=== PATIENT | male | born 1965 | race Caucasian/White ===

== ENCOUNTER → 2023-03-30 | Outpatient (CLI) | payer BC ==
[2023-03-30 15:05] LABS: BASO % 0.4 % (0.0-1.0); EOS # 0.1 10*3/uL (0.0-0.4); EOS % 2.7 % (1.0-4.0); HEMATOCRIT 46.1 % (42.0-52.0); LYMPH # 0.9 10*3/uL (1.3-4.4); LYMPH % 20.4 % (27.0-41.0); MEAN CELL VOLUME 90.6 fl (80.0-94.0); MEAN CORPUSCULAR HGB 31.8 pg (27.0-31.0); MEAN CORPUSCULAR HGB CONC 35.1 g/dl (33.0-37.0); MONO # 0.7 10*3/uL (0.1-1.0); MONO % 15.2 % (3.0-9.0); NEUT # 2.7 10*3/uL (2.3-7.9); NEUT % 61.1 % (47.0-73.0); PLATELET COUNT AUTOMATED 95 10*3/uL (130-400); RED BLOOD COUNT 5.09 10*6/uL (4.50-5.90); RED CELL DISTRI WIDTH 13.3 % (0-14.5); WHITE BLOOD COUNT 4.5 10*3/uL (4.8-10.8)
[2023-03-30 16:08] LABS: ALKALINE PHOSPHATASE 157 U/L (46-116); BUN 7 mg/dl (9-23); CHLORIDE 103 mmol/L (98-107); CHOLESTEROL 211 mg/dL (<200); LDL CHOLESTEROL 126 mg/dL (9-159); POTASSIUM 4.6 mmol/L (3.4-5.1); SGPT/ALT 125 U/L (5-49); TOTAL PROTEIN 7.6 gm/dL (6.0-8.0); TRIGLYCERIDES 137 mg/dl (<150)
== END | disposition home or self-care (01) ==
LOC: LAB 14:47
PROVIDERS: ATTEND Nurse Practitioner Family
DX: I10 Essential (primary) hypertension (principal); E11.65 Type 2 diabetes mellitus with hyperglycemia; E03.9 Hypothyroidism, unspecified; R79.89 Other specified abnormal findings of blood chemistry; E66.9 Obesity, unspecified

== ENCOUNTER 2023-04-12 18:46 | Emergency (ER) | payer BC ==
[~2023-04-12] VITALS: Ht 170.1 cm; Wt 108.9 kg
[2023-04-12] MEDS ORDERED: CYCLOBENZAPRINE10 MG PO (21:21)
== END 2023-04-12 21:57 | disposition home or self-care (01) ==
LOC: ED 18:46
DX: M54.50 Low back pain, unspecified (principal)

== ENCOUNTER → 2023-04-29 | Outpatient (CLI) | payer BC ==
[~2023-04-29] MED LIST: CYCLOBENZAPRINE10 MG PO
== END | disposition home or self-care (01) ==
LOC: US 00:48
PROVIDERS: ATTEND Nurse Practitioner Primary Care
DX: K80.20 Calculus of gallbladder without cholecystitis without obstruction (principal); K74.60 Unspecified cirrhosis of liver; R79.89 Other specified abnormal findings of blood chemistry